=== PATIENT | female | born 1985 | race African-American/Black ===

== ENCOUNTER 2021-12-10 19:45 | Emergency (ER) | payer OTHER ==
[~2021-12-10] VITALS: Ht 165.1 cm; Wt 81.6 kg
--- NOTE | 2021-12-10 20:05 | NUR ---
PT AMBULATED TO ER C/O DIZZINESS, BILATERAL HAND TINGLING AND CHILLS X3 DAYS AGO. STATES SHE HAD AN 6 DAYS AGO. A/O X4, NO SOB OR LABORED BREATHING. DENIES CP/PRESSURE. NO N/V/D. CLEAR SPEECH, COMPLETE SENTENCES.
--- NOTE | 2021-12-10 20:10 | NUR ---
Kelli HAGER AT BEDSIDE, MSE IN PROGRESS.
--- NOTE | 2021-12-10 20:32 | NUR ---
LAB AT BEDSIDE.
[2021-12-10 20:45] LABS: HEMATOCRIT 35.2 % (31.2-41.9); MEAN CORPUSCULAR HEMOGLOBIN 29.8 uug (24.7-32.8); MEAN CORPUSCULAR VOLUME 90.2 fL (75.5-95.3); PLATELET COUNT (AUTO) 266 K/uL (179-408)
--- NOTE | 2021-12-10 20:50 | NUR ---
US ([facility]) AT BEDSIDE.
[2021-12-10] MEDS ORDERED: LORA0.5T48 PO (21:33)
--- NOTE | 2021-12-10 21:57 | NUR ---
Patient discharged to home in stable condition. Written and verbal after care instructions given. Patient verbalizes understanding of instructions. Stressed follow up or return to ER for worsening s/s. Steady gait, denies any pain/discomfort upon dicharge.
[2021-12-10 21:58] VITALS: BP 126/70
== END 2021-12-10 21:59 | disposition home or self-care (01) ==
LOC: ER 19:50
DX: R20.2 Paresthesia of skin (principal); R42 Dizziness and giddiness; R68.83 Chills (without fever); D25.9 Leiomyoma of uterus, unspecified; F41.9 Anxiety disorder, unspecified; R03.0 Elevated blood-pressure reading, without diagnosis of hypertension
CPT/HCPCS: 36415; 76856; 85025; A4663